=== PATIENT | female | born 1995 | race Caucasian/White ===

== ENCOUNTER 2017-05-21 18:26 | Emergency (ER) | payer OTHER ==
[~2017-05-21] VITALS: Ht 177.8 cm
[~2017-05-21 18:26] MED LIST: IBU800 MG PO; MOTRIN400 MG PO; NKHM; SILVADENE1% TP; VICODIN 5/500 505 MG PO
[2017-05-21] MEDS ORDERED: PROAIR HFA8.5 GM INH (20:09)
[2017-05-21] MEDS ORDERED: DELTASONE20 M1 PO (20:10)
[2017-05-21] MEDS ORDERED: MUCINEX1200 M1 PO (20:10)
[2017-05-21] MEDS ORDERED: ALLEGRA-D 24 H1 EACH PO (20:10)
== END 2017-05-21 20:16 | disposition home or self-care (01) ==
LOC: ED 18:26
DX: J40 Bronchitis, not specified as acute or chronic (principal); Z79.899 Other long term (current) drug therapy

== ENCOUNTER 2019-11-26 23:52 | Emergency (ER) | payer OTHER ==
[~2019-11-26] VITALS: Ht 172.7 cm; Wt 90.7 kg
[~2019-11-26 23:52] MED LIST changes: +ALLEGRA-D 24 H1 EACH PO; +DELTASONE20 M1 PO; +MUCINEX1200 M1 PO; +PROAIR HFA8.5 GM INH
== END 2019-11-27 01:18 | disposition home or self-care (01) ==
LOC: ED 23:52
DX: F41.9 Anxiety disorder, unspecified (principal); Z79.899 Other long term (current) drug therapy

== ENCOUNTER → 2019-12-02 | Outpatient (CLI) | payer OTHER ==
[2019-12-02 10:54] LABS: HEMATOCRIT 43.4 % (37.0-47.0); MEAN CELL VOLUME 85.9 fl (81.0-99.0); MEAN CORPUSCULAR HGB 28.3 pg (27.0-31.0); MEAN CORPUSCULAR HGB CONC 32.9 g/dl (33.0-37.0); MEAN PLATELET VOLUME 9.9 fl (9.6-12.3); RED BLOOD COUNT 5.05 10*6/uL (4.10-5.10); RED CELL DISTRI WIDTH 11.8 % (0-14.5); WHITE BLOOD COUNT 7.9 10*3/uL (4.8-10.8)
[2019-12-02 11:10] LABS: ALBUMIN 3.9 gm/dl (3.1-4.5); ALKALINE PHOSPHATASE 92 U/L (45-117); BUN 12 mg/dl (7-24); CHLORIDE 107 mmol/L (98-107); CHOLESTEROL 207 mg/dL (<200); CREATININE 0.82 mg/dL (0.55-1.02); HDL CHOLESTEROL 45 mg/dl (40-60); LDL CHOLESTEROL 133 mg/dL (9-159); POTASSIUM 4.7 mmol/L (3.5-5.1); SGOT/AST 12 IU/L (3-35); SGPT/ALT 24 U/L (12-78); SODIUM 140 mmol/L (136-145); TOTAL PROTEIN 8.2 gm/dL (6.4-8.2); TRIGLYCERIDES 146 mg/dl (<150); VLDL CHOLESTEROL 29 mg/dL (6-40)
[2019-12-02 11:11] LABS: FREE T4 0.92 ng/dl (0.76-1.46)
[2019-12-02 11:50] LABS: VITAMIN D, 25-HYDROXY 31.3 ng/mL (30-100)
[2019-12-03 08:11] LABS: RHEUMATOID ARTHRITIS FACTOR 21.9 IU/mL (0.0-13.9)
== END | disposition home or self-care (01) ==
LOC: LAB 10:41
PROVIDERS: ATTEND Family Medicine
DX: Z13.220 Encounter for screening for lipoid disorders (principal); M25.50 Pain in unspecified joint; M25.512 Pain in left shoulder; M79.18 Myalgia, other site

== ENCOUNTER → 2020-02-14 | Outpatient (CLI) | payer OTHER | END | disposition home or self-care (01) | LOC: COVID19 13:39 | PROVIDERS: ATTEND Family Medicine | DX: Z20.822 Contact with and (suspected) exposure to COVID-19 (principal); J32.9 Chronic sinusitis, unspecified ==

== ENCOUNTER → 2020-02-17 | Outpatient (CLI) | payer OTHER | END | disposition home or self-care (01) | LOC: RAD 16:09 | PROVIDERS: ATTEND Nurse Practitioner Family | DX: M54.2 Cervicalgia (principal); Z98.890 Other specified postprocedural states ==

== ENCOUNTER → 2020-02-20 | Outpatient (CLI) | payer OTHER | END | disposition home or self-care (01) | LOC: CT 00:49 | PROVIDERS: ATTEND Nurse Practitioner Family | DX: M48.02 Spinal stenosis, cervical region (principal); M54.12 Radiculopathy, cervical region ==

== ENCOUNTER → 2020-02-25 | Outpatient (CLI) | payer OTHER | END | disposition home or self-care (01) | LOC: LAB 13:06 | PROVIDERS: ATTEND Family Medicine | DX: R76.8 Other specified abnormal immunological findings in serum (principal) ==

== ENCOUNTER → 2020-05-08 | Outpatient (CLI) | payer OTHER | END | disposition home or self-care (01) | LOC: MRI 09:41 | PROVIDERS: ATTEND Family Medicine | DX: R20.0 Anesthesia of skin (principal); J34.1 Cyst and mucocele of nose and nasal sinus ==

== ENCOUNTER → 2020-09-16 | Outpatient (CLI) | payer OTHER | END | disposition home or self-care (01) | LOC: MRI 00:23 | PROVIDERS: ATTEND Physical Medicine & Rehabilitation Pain Medicine | DX: M47.22 Other spondylosis with radiculopathy, cervical region (principal); M25.78 Osteophyte, vertebrae ==

== ENCOUNTER → 2021-02-12 | Outpatient (CLI) | payer OTHER ==
[2021-02-12 17:07] LABS: FREE T4 0.98 ng/dl (0.76-1.46)
[2021-02-12 17:12] LABS: THYROID STIM HORMONE (HS) 1.8 uIU/ml (0.358-4.75)
== END ==
LOC: LAB 16:34
PROVIDERS: ATTEND Psychiatry & Neurology Psychiatry
DX: E55.9 Vitamin D deficiency, unspecified (principal); E07.9 Disorder of thyroid, unspecified

== ENCOUNTER → 2021-04-30 | Outpatient (CLI) | payer OTHER | END | disposition home or self-care (01) | LOC: US 01:22 | PROVIDERS: ATTEND Obstetrics & Gynecology | DX: N85.8 Other specified noninflammatory disorders of uterus (principal); N92.6 Irregular menstruation, unspecified ==

== ENCOUNTER → 2022-04-22 | Outpatient (CLI) | payer OTHER | END | disposition home or self-care (01) | LOC: US 00:28 | PROVIDERS: ATTEND Obstetrics & Gynecology | DX: N92.6 Irregular menstruation, unspecified (principal) ==

== ENCOUNTER 2023-01-01 21:47 | Emergency (ER) | payer OTHER ==
[~2023-01-01] VITALS: Ht 175.2 cm; Wt 113.4 kg
[2023-01-02] MEDS ORDERED: PREDNISONE20 M1 PO (02:40)
== END 2023-01-02 03:24 | disposition home or self-care (01) ==
LOC: ED 21:47
DX: R09.81 Nasal congestion (principal); R05.9 Cough, unspecified; J02.9 Acute pharyngitis, unspecified; Z98.890 Other specified postprocedural states; Z20.822 Contact with and (suspected) exposure to COVID-19

== ENCOUNTER → 2023-05-27 | Outpatient (CLI) | payer OTHER ==
[~2023-05-27] MED LIST changes: +PREDNISONE20 M1 PO
== END | disposition home or self-care (01) ==
LOC: CT 02:15
PROVIDERS: ATTEND Otolaryngology
DX: J32.0 Chronic maxillary sinusitis (principal); R51.9 Headache, unspecified; R09.82 Postnasal drip; R09.81 Nasal congestion; J32.2 Chronic ethmoidal sinusitis; J32.3 Chronic sphenoidal sinusitis; J34.3 Hypertrophy of nasal turbinates; J34.1 Cyst and mucocele of nose and nasal sinus